=== PATIENT | male | born 1965 | race Caucasian/White ===

== ENCOUNTER 2017-12-28 14:38 | Emergency (ER) | payer MEDICAID ==
[~2017-12-28] VITALS: Ht 172.7 cm; Wt 72.6 kg
[~2017-12-28 14:38] MED LIST: AMLO10TA2 PO; BENA20TA2 PO; METO50TA16 PO
--- NOTE | 2017-12-28 14:43 | NUR ---
PT IS IN ROOM #2B. DR STEPHENS EVALUATED THE PT.
[2017-12-28] MEDS: TETRACAINE HCL 0.5% OPHT DROP 2 ML BOTTLE OP ONE (14:47)
[2017-12-28] MEDS ORDERED: TETRACAINE HCL 0.5% OPHT DROP 2 ML BOTTLE ONE (14:48)
[2017-12-28] MEDS ORDERED: GENTAMICIN SULFATE OPHT DROP 5 ML BOTTLE ONE (14:58)
[2017-12-28] MEDS: GENTAMICIN SULFATE OPHT DROP 5 ML BOTTLE OP ONE (14:59)
--- NOTE | 2017-12-28 15:01 | NUR ---
PT WAS D/C TO HOME. D/C INSTRUCTIONS GIVEN TO THE PT.
[2017-12-28 15:03] VITALS: BP 142/81
== END 2017-12-28 15:04 | disposition home or self-care (01) ==
LOC: ER 14:38
DX: H10.9 Unspecified conjunctivitis (principal); I10 Essential (primary) hypertension; Z59.0 Homelessness
CPT/HCPCS: A4663

== ENCOUNTER 2017-12-30 17:51 | Emergency (ER) | payer MEDICAID ==
[~2017-12-30] VITALS: Ht 172.7 cm; Wt 72.6 kg
--- NOTE | 2017-12-30 19:05 | NUR ---
sbar report to janusz dalton
[2017-12-30] MEDS ORDERED: HYDROCODONE/APAP 5-325MG TABLET ONE (19:44)
[2017-12-30] MEDS ORDERED: HYDROCODONE/APAP 5-325MG TABLET PO ONE (19:45)
--- NOTE | 2017-12-30 19:45 | NUR ---
Patient discharged to home in stable conditon. Written and verbal after care instructions given. Patient verbalizes understanding of instructions. Ambulated from ER with stable gait. All belongings with patient. VSS
[2017-12-30 19:46] VITALS: BP 128/81
== END 2017-12-30 19:47 | disposition home or self-care (01) ==
LOC: ER 17:53
DX: H20.9 Unspecified iridocyclitis (principal); I10 Essential (primary) hypertension; Z90.49 Acquired absence of other specified parts of digestive tract; Z59.0 Homelessness; Z79.899 Other long term (current) drug therapy
CPT/HCPCS: 99282; A4663

== ENCOUNTER 2018-09-04 21:36 | Emergency (ER) | payer MEDICAID ==
[~2018-09-04] VITALS: Ht 170.2 cm; Wt 86.2 kg
[~2018-09-04 21:36] MED LIST changes: -AMLO10TA2 PO; +AMLO10TA7 PO; -BENA20TA2 PO; +BENA20TA9 PO
--- NOTE | 2018-09-04 21:48 | NUR ---
Pt bib private ambulance from [facility] with c/o intermittent swelling and pain to bilateral upper extremities x 1 month. Pt also c/o pain to left index finger x 2 days. No swelling noted. AAOX4.
[2018-09-04] MEDS ORDERED: DOCU100C36 PO (21:53)
[2018-09-04] MEDS ORDERED: LISI10TA5 PO (21:53)
[2018-09-04] MEDS ORDERED: GABA-534 PO (21:53)
[2018-09-04] MEDS ORDERED: HYDR-4077 PO (21:53)
[2018-09-04] MEDS ORDERED: MORP15TA7 PO (21:53)
[2018-09-04] MEDS ORDERED: LABE200T5 PO (21:53)
--- NOTE | 2018-09-04 21:54 | NUR ---
Denies chest pain/shortness of breath. Denies GI/ distress. Denies N/V/D. Denies any other complaints or s/s. Requesting pain medication.
--- NOTE | 2018-09-04 22:38 | NUR ---
Kimmy hsu for transport back to [facility]. ETA 0030. Trip# [id number]
[2018-09-04] MEDS ORDERED: OXYCODONE/APAP 5-325 MG TABLET ONE (22:44)
[2018-09-04] MEDS ORDERED: DIAZEPAM 5 MG TABLET ONE (22:44)
[2018-09-04] MEDS ORDERED: DIAZEPAM 2 MG TABLET PO ONE (22:45)
[2018-09-04] MEDS ORDERED: OXYCODONE/APAP 5-325 MG TABLET PO ONE (22:45)
--- NOTE | 2018-09-05 00:24 | NUR ---
Patient discharged to home in stable conditon. Written and verbal after care instructions given. Patient verbalizes understanding of instructions. [facility] unit [facility] here to transport pt back to [facility]. VSS. No acute distress noted. Pt states pain management effective.
[2018-09-05 00:25] VITALS: BP 141/83
== END 2018-09-05 00:27 | disposition home or self-care (01) ==
LOC: ER 21:36
DX: M54.12 Radiculopathy, cervical region (principal); I10 Essential (primary) hypertension; Z90.49 Acquired absence of other specified parts of digestive tract; Z59.0 Homelessness; Z79.899 Other long term (current) drug therapy; Z79.891 Long term (current) use of opiate analgesic
CPT/HCPCS: 93005; A4663

== ENCOUNTER 2018-09-05 19:21 | Emergency (ER) | payer MEDICAID ==
[~2018-09-05] VITALS: Ht 170.2 cm; Wt 83.9 kg
[~2018-09-05 19:21] MED LIST changes: -BENA20TA9 PO; +DOCU100C36 PO; +GABA-534 PO; +HYDR-4077 PO; +LABE200T5 PO; +LISI10TA5 PO; +MORP15TA7 PO
--- NOTE | 2018-09-05 20:28 | NUR ---
CALLED [facility] TO TAKE PATIENT BACK TO [facility] ETA 1599. TRIP #[id number]
[2018-09-05] MEDS ORDERED: OXYCODONE/APAP 5-325 MG TABLET PO ONE (20:30)
[2018-09-05] MEDS ORDERED: DIAZEPAM 2 MG TABLET PO ONE (20:30)
[2018-09-05] MEDS ORDERED: OXYCODONE/APAP 5-325 MG TABLET ONE ×2 (20:36→23:30)
[2018-09-05] MEDS ORDERED: DIAZEPAM 5 MG TABLET ONE (20:36)
--- NOTE | 2018-09-05 23:18 | NUR ---
GAVE SBAR REPORT TO [facility] TEAM WHO WILL TAKE PATIENT BACK TO [facility]
[2018-09-05] MEDS ORDERED: HYDROCODONE/APAP 5-325MG TABLET PO ONE (23:30)
--- NOTE | 2018-09-05 23:30 | NUR ---
GAVE SBAR REPORT STAFF MEMBER FROM [facility]
--- NOTE | 2018-09-05 23:35 | NUR ---
Patient discharged to home in stable conditon VIA [facility]. Written and verbal after care instructions given. Patient verbalizes understanding of instructions.
[2018-09-05 23:36] VITALS: BP 148/88
== END 2018-09-05 23:37 | disposition home or self-care (01) ==
LOC: ER 19:21
DX: M54.12 Radiculopathy, cervical region (principal); I10 Essential (primary) hypertension; G89.29 Other chronic pain; M54.2 Cervicalgia; Z90.49 Acquired absence of other specified parts of digestive tract; Z59.0 Homelessness; Z79.891 Long term (current) use of opiate analgesic; Z79.899 Other long term (current) drug therapy
CPT/HCPCS: A4663

== ENCOUNTER 2018-09-06 23:44 | Emergency (ER) | payer MEDICAID ==
[~2018-09-06] VITALS: Ht 172.7 cm; Wt 83.9 kg
--- NOTE | 2018-09-06 23:51 | NUR ---
Dr. Nguyen at bedside for MSE.
[2018-09-06] MEDS ORDERED: CLONIDINE HCL 0.1 MG TABLET ONE (23:55)
[2018-09-06] MEDS ORDERED: OXYCODONE/APAP 5-325 MG TABLET ONE (23:56)
[2018-09-06] MEDS ORDERED: DIAZEPAM 2 MG TABLET ONE (23:56)
[2018-09-07] MEDS ORDERED: CLONIDINE HCL 0.1 MG TABLET PO ONE
[2018-09-07] MEDS ORDERED: DIAZEPAM 2 MG TABLET PO ONE
[2018-09-07] MEDS ORDERED: OXYCODONE/APAP 5-325 MG TABLET PO ONE ×2
--- NOTE | 2018-09-07 00:15 | NUR ---
Notified greenhouse manager for a taxi voucher. Patient provided with a taxi voucher to [facility] [address] [place] [address].
--- NOTE | 2018-09-07 01:00 | NUR ---
Patient refusing to leave, security called for assistance. Security advised to call [employer]. Called [employer].
--- NOTE | 2018-09-07 01:11 | NUR ---
[employer] arrived to ER, at bedside interviewing patient.
--- NOTE | 2018-09-07 01:21 | NUR ---
Patient requesting ambulance transfer back to SNF. [facility] ETA is 1hr with trip #[id number]
--- NOTE | 2018-09-07 03:20 | NUR ---
Patient discharged to home in stable conditon. Written and verbal after care instructions given. Patient verbalizes understanding of instructions. Pt out of ER via [facility] to be transported to [facility], [facility], no acute signs of distress, all belongings taken.
[2018-09-07 03:29] VITALS: BP 141/88
== END 2018-09-07 03:29 | disposition home or self-care (01) ==
LOC: ER 23:45
DX: M54.12 Radiculopathy, cervical region (principal); I10 Essential (primary) hypertension; G89.29 Other chronic pain; M54.2 Cervicalgia; Z79.891 Long term (current) use of opiate analgesic; Z79.899 Other long term (current) drug therapy
CPT/HCPCS: A4663

== ENCOUNTER 2020-05-14 18:43 | Emergency (ER) | payer MEDICAID, OTHER ==
[~2020-05-14] VITALS: Ht 172.7 cm; Wt 83.9 kg
[~2020-05-14 18:43] MED LIST changes: +AMLO10TA59 PO; -AMLO10TA7 PO
--- NOTE | 2020-05-14 19:05 | NUR ---
Dr Azevedo at bedside for MSE and wound treatment.
[2020-05-14] MEDS ORDERED: BENA20TA9 PO (19:06)
[2020-05-14] MEDS ORDERED: NEOMY/BACITRA/POLYMYXIN B OINT UD PACKET TP ONE ×2 (19:26→19:30)
[2020-05-14] MEDS ORDERED: LIDOCAINE HCL 2% 20 ML VIAL TP ONE (19:30)
--- NOTE | 2020-05-14 19:36 | NUR ---
Dressing applied as ordered by MD. Pt tolerated wound care. Patient discharged to home in stable condition. Written and verbal after care instructions given. Patient verbalizes understanding of instructions. Stressed follow up in 2 days for wound check, or return to ER for worsening s/s. Ambulated out of ED in steady gait, and stable condition.
[2020-05-14 20:01] VITALS: BP 120/80
== END 2020-05-14 19:45 | disposition home or self-care (01) ==
LOC: ER 18:43
DX: L02.413 Cutaneous abscess of right upper limb (principal); B18.2 Chronic viral hepatitis C; Z59.0 Homelessness; M48.02 Spinal stenosis, cervical region; I10 Essential (primary) hypertension; Z79.899 Other long term (current) drug therapy
CPT/HCPCS: 10060; 99282; J3490; A4663

== ENCOUNTER 2020-05-17 16:52 | Emergency (ER) | payer OTHER ==
[~2020-05-17] VITALS: Ht 172.7 cm; Wt 74.8 kg
[~2020-05-17 16:52] MED LIST changes: -AMLO10TA59 PO; +AMLO10TA7 PO; +BENA20TA9 PO; -HYDR-4077 PO; -LABE200T5 PO; -LISI10TA5 PO; -MORP15TA7 PO
--- NOTE | 2020-05-17 17:20 | NUR ---
Dr. Sifuentes at bedside for MSE
[2020-05-17] MEDS ORDERED: CLINDAMYCIN HCL 150 MG CAPSULE PO ONE (17:30)
[2020-05-17] MEDS ORDERED: SULFAMETH/TRIMETH 800/160 MG TABLET PO ONE (17:30)
[2020-05-17] MEDS ORDERED: LIDOCAINE 2%-EPI 1:100,000 20 ML VIAL TP ONE (17:30)
[2020-05-17] MEDS ORDERED: LIDOCAINE 2%-EPI 1:100,000 20 ML VIAL ONE (17:38)
[2020-05-17] MEDS ORDERED: SULFAMETH/TRIMETH 800/160 MG TABLET ONE (18:40)
[2020-05-17] MEDS ORDERED: CLINDAMYCIN HCL 150 MG CAPSULE ONE (18:40)
--- NOTE | 2020-05-17 18:45 | NUR ---
Patient discharged to home in stable condition. Written and verbal after care instructions given. Patient verbalizes understanding of instructions. Stressed follow up or return to ER for worsening s/s. Patient ambulated with steady gait. NAD noted
[2020-05-17 19:03] VITALS: BP 124/83
== END 2020-05-17 18:45 ==
LOC: ER 16:52
DX: L03.114 Cellulitis of left upper limb (principal); L02.414 Cutaneous abscess of left upper limb; Z90.49 Acquired absence of other specified parts of digestive tract; I10 Essential (primary) hypertension; Z86.19 Personal history of other infectious and parasitic diseases; M48.02 Spinal stenosis, cervical region
CPT/HCPCS: A4663

== ENCOUNTER 2021-03-05 17:46 | Emergency (ER) | payer OTHER ==
[~2021-03-05] VITALS: Ht 172.7 cm; Wt 77.1 kg
[~2021-03-05 17:46] MED LIST changes: +AMLO10TA59 PO; -AMLO10TA7 PO
[2021-03-05] MEDS ORDERED: KETOROLAC TROMETHAMINE 15 MG INJ IM ONE (20:15)
[2021-03-05] MEDS ORDERED: predniSONE 20 MG TABLET PO ONE (20:15)
[2021-03-05] MEDS ORDERED: predniSONE 20 MG TABLET ONE (20:22)
[2021-03-05] MEDS ORDERED: KETOROLAC TROMETHAMINE 15 MG INJ ONE (20:22)
[2021-03-05] MEDS ORDERED: PRED20TA PO (20:49)
[2021-03-05] MEDS ORDERED: HYDROCODONE/APAP 5-325MG TABLET ONE (21:45)
[2021-03-05] MEDS ORDERED: HYDROCODONE/APAP 5-325MG TABLET PO ONE (21:45)
[2021-03-05 22:35] VITALS: BP 121/88
--- NOTE | 2021-03-05 22:35 | NUR ---
Patient given written and verbal discharge instructions. Patient verbalizes understanding of instructions. Patient is ambulatory with steady gait. Refuses offer of senior care placement. Patient given list of available shelters in surrounding area.
== END 2021-03-05 22:36 | disposition home or self-care (01) ==
LOC: ER 17:47
DX: M48.061 Spinal stenosis, lumbar region without neurogenic claudication (principal); M54.16 Radiculopathy, lumbar region; M51.27 Other intervertebral disc displacement, lumbosacral region; I10 Essential (primary) hypertension; B18.2 Chronic viral hepatitis C; Z90.49 Acquired absence of other specified parts of digestive tract; R26.2 Difficulty in walking, not elsewhere classified; Z79.899 Other long term (current) drug therapy; Z87.81 Personal history of (healed) traumatic fracture
CPT/HCPCS: 72131; 73000; 96372; 99284; J1885; J7512; A4663

== ENCOUNTER 2021-03-18 19:56 | Inpatient (IN) | payer OTHER ==
[~2021-03-18] VITALS: Ht 170.2 cm; Wt 90.7 kg
[~2021-03-18 19:56] MED LIST changes: +PRED20TA PO
[2021-03-18] MEDS ORDERED: OLANZAPINE ZYDIS 5 MG TAB.RAPDIS PO STA (20:57)
[2021-03-18 21:15] LABS: HEMATOCRIT 42.4 % (36.7-47.1); MEAN CORPUSCULAR HEMOGLOBIN 32.6 uug (23.8-33.4); MEAN CORPUSCULAR VOLUME 93.3 fL (73.0-96.2); PLATELET COUNT (AUTO) 297 K/uL (152-348)
[2021-03-18 21:24] LABS: CREATININE 2.9 mg/dL (0.6-1.3); POTASSIUM 3.1 mmol/L (3.5-5.1)
[2021-03-18] MEDS ORDERED: OLANZAPINE 5 MG TABLET ONE (21:28)
[2021-03-18 21:32] LABS: ETHANOL 30 MG/DL (0-0)
[2021-03-18 21:36] LABS: BILIRUBIN,DIRECT 0.2 mg/dL (0.0-0.2); BILIRUBIN,TOTAL 0.4 mg/dL (0.2-1.0); TOTAL PROTEIN, SERUM 8.2 g/dL (6.4-8.2)
[2021-03-18 21:37] LABS: MAGNESIUM 2.6 mg/dL (1.8-2.4); PHOSPHOROUS 3.5 mg/dL (2.5-4.9)
[2021-03-18] MEDS ORDERED: IV NORMAL SALINE 1000 ML BAG IV ONE (22:15)
[2021-03-18] MEDS ORDERED: CLOPIDOGREL 75 MG TABLET PO ONE (22:15)
[2021-03-18] MEDS ORDERED: ASPIRIN 325 MG TABLET PO ONE (22:15)
[2021-03-18] MEDS ORDERED: TRAMADOL HCL 50 MG TABLET PO ONE (22:30)
[2021-03-18] MEDS ORDERED: ENOXAPARIN SODIUM 40 MG/0.4 ML DISP.SYRIN SQ ONE (22:30)
[2021-03-18] MEDS ORDERED: TRAMADOL HCL 50 MG TABLET ONE (22:39)
[2021-03-18] MEDS ORDERED: ENOXAPARIN SODIUM 60 MG/0.6 ML DISP.SYRIN SQ ONE (22:39)
[2021-03-18] MEDS ORDERED: ASPIRIN 325 MG TABLET ONE (22:39)
[2021-03-18] MEDS ORDERED: CLOPIDOGREL 75 MG TABLET ONE (22:40)
[2021-03-18 22:43] LABS: *BILIRUBIN,URIN NEGATIVE (NEGATIVE); *BLOOD, URINE 1+ (NEGATIVE); *CLARITY,URINE CLEAR (CLEAR); *COLOR,URINE YELLOW (YELLOW); *KETONES,URINE NEGATIVE (NEGATIVE); *UROBILINOGEN,URINE 0.2 E.U./dl (NORMAL); LEUKOCYTE ESTERASE ,URINE NEGATIVE (NEGATIVE); NITRITE, URINE NEGATIVE (NEGATIVE); UGLUCOSE TRACE (NEGATIVE)
[2021-03-18 22:58] LABS: BACTERIA,URINE FEW /HPF (NONE SEEN); RBC,URINE 0-3 /HPF (0-3); SQUAMOUS EPITHELIAL CELL,UR FEW /HPF (NONE SEEN); WBC,URINE 0-3 /HPF (0-3)
[2021-03-18] MEDS ORDERED: POTASSIUM CHLORIDE 20 MEQ TAB.PRT.SR PO ONE (23:00)
--- NOTE | 2021-03-18 23:00 | NUR ---
PAGED EPIC ON SHEAR GRINDER OPERATOR HELPER, WAITING FOR DR BURNS TO CALL BACK.
[2021-03-18 23:02] LABS: *AMPHETAMINE, URINE NEGATIVE (NEGATIVE); *CANNABINOID, URINE NEGATIVE (NEGATIVE); *COCCAINE, URINE NEGATIVE (NEGATIVE); *OPIATE, URINE NEGATIVE (NEGATIVE); *PHENCYCLIDINE SCREEN,URINE NEGATIVE (NEGATIVE)
[2021-03-18] MEDS ORDERED: POTASSIUM CHLORIDE 20 MEQ TAB.PRT.SR ONE (23:48)
--- NOTE | 2021-03-19 00:15 | NUR ---
Dr Hdez spoke to [facility] calibration tester Christo Rob NP who accepted patient to Tele floor.
[2021-03-19] MEDS ORDERED: Z GUARD REMEDY PASTE 57 GM TUBE TOP PRN (00:30)
[2021-03-19] MEDS ORDERED: ONDANSETRON 4 MG/2 ML VIAL IV PRN (00:30)
--- NOTE | 2021-03-19 01:17 | NUR ---
Transfered to 3rd floor Tele via gurny with no distress noted.
--- NOTE | 2021-03-19 01:20 | NUR ---
ADMITTED PATIENT IN TELE FLOOR UNDER THE CARE OF ADRIANNE ROMERO, PATIENT ALERT ORIENTED, FACE RED, SMELL ALCOHOL, DENIES DRINKING. PATIENT TELE SINUS RHYTHM 88, PATIENT DISHEVELED APPEARS HOMELESS, NO COMPLAIN OF PAIN AT THIS TIME, WILL CONT TO MONITOR.
[2021-03-19 01:30] VITALS: BP 168/108
[2021-03-19 04:00] VITALS: BP 130/100
--- NOTE | 2021-03-19 04:01 | NUR ---
PATIENT HAD COVID 19 VACCINE PFIZER.
--- NOTE | 2021-03-19 04:38 | NUR ---
NOTIFY ADRIANNE ROMERO PATIENT BP 189/100, 130/100, WITH ORDER.
[2021-03-19] MEDS ORDERED: hydrALAZINE HCL 20 MG/1 ML VIAL IV PRN (04:45)
[2021-03-19] MEDS: PANTOPRAZOLE SODIUM 40 MG TABLET.DR PO SCH (06:08)
--- NOTE | 2021-03-19 06:27 | NUR ---
PATIENT ALERT ORIENTED, NO SOB NO CHEST PAIN, NO HEADACHES, NO DIZZINESS AT THIS TIME, NO NAUSEA NO VOMITING NOTED. PATIENT TELE MONITOR SINUS RHYTHM AT THIS TIME, WILL MONITOR BP.
[2021-03-19 08:38] VITALS: BP 158/99
[2021-03-19] MEDS ORDERED: IV NS 1000 ML 1,000 ML IV PRN ×2 (08:45→16:00)
[2021-03-19] MEDS ORDERED: CLOPIDOGREL 75 MG TABLET PO SCH (09:00)
--- NOTE | 2021-03-19 09:00 | NUR ---
awake alert and oriented, denies of pain, no shortness of breath, tele SR, seen earlier by Dr Huerta with orders- carried out, explained plan of care, just looks and said 'Yes", not very conversant, needs attended, call light within reach
[2021-03-19] MEDS: METOPROLOL TARTRATE 50 MG TABLET PO SCH ×2 (09:04→20:59)
[2021-03-19 09:12] LABS: HEMATOCRIT 38.4 % (36.7-47.1); MEAN CORPUSCULAR HEMOGLOBIN 33.1 uug (23.8-33.4); MEAN CORPUSCULAR VOLUME 94.9 fL (73.0-96.2); PLATELET COUNT (AUTO) 272 K/uL (152-348)
[2021-03-19 09:20] LABS: BILIRUBIN,TOTAL 0.8 mg/dL (0.2-1.0); CREATININE 2.5 mg/dL (0.6-1.3); POTASSIUM 3.5 mmol/L (3.5-5.1); TOTAL PROTEIN, SERUM 6.6 g/dL (6.4-8.2)
[2021-03-19] MEDS: ASPIRIN 81 MG TAB.CHEW PO SCH (09:23)
[2021-03-19 11:58] VITALS: BP 120/80
--- NOTE | 2021-03-19 12:30 | NUR ---
states" cant find my cards" threw his belongings on the floor, and mad, assisted and found cards in his bag, calmed down after and apologized
[2021-03-19] MEDS ORDERED: IV NORMAL SALINE 1000 ML BAG IV PRN (15:30)
--- NOTE | 2021-03-19 15:30 | NUR ---
seen by Holly Serrano MATERIALS AND CORROSION ENGINEER- wissruthi daniels- carried out
[2021-03-19 15:33] VITALS: BP 139/86
[2021-03-19] MEDS: ACETAMINOPHEN 325 MG TABLET PO PRN (16:39)
[2021-03-19] MEDS ORDERED: ASPI81TA31 PO (16:46)
[2021-03-19] MEDS ORDERED: ATOR40TA PO (16:46)
[2021-03-19] MEDS ORDERED: TAMS-3 PO (16:46)
[2021-03-19] MEDS ORDERED: IBUP-1953 PO (16:46)
[2021-03-19] MEDS ORDERED: HYDR-894 PO (16:46)
[2021-03-19] MEDS ORDERED: FAMO20TA8 PO (16:46)
[2021-03-19] MEDS ORDERED: HYDR-3972 PO (16:46)
[2021-03-19] MEDS ORDERED: IBUP-1955 PO (16:49)
[2021-03-19] MEDS ORDERED: METO100T7 PO (16:54)
[2021-03-19] MEDS ORDERED: DOCUSATE SODIUM 100 MG CAPSULE PO SCH (17:00)
[2021-03-19] MEDS: LACTULOSE 20 G/30 ML LIQUID UDC PO SCH (17:27)
--- NOTE | 2021-03-19 18:25 | NUR ---
no distress noted, cooperative at this time, still periods of talking to himself but directable, safety measures maintained, remains on SR, call light within reach
--- NOTE | 2021-03-19 20:12 | NUR ---
Received patient in bed alert x4 .Calm and pleasant upon approach.On RA saturating at 98 %.NSR on Tele.IV on right AC 20g with NS running at 80cc/hr. seen and examined patient with new order received noted and carried out. Dc'D IvF changed to LR at 100 ml/Hr.Patient uses urinal voided well. Safety measures in place.Will continue to monitor.
[2021-03-19] MEDS ORDERED: LORAZEPAM 2 MG/1 ML VIAL IV PRN (20:30)
[2021-03-19] MEDS: TRAZODONE 100 MG TABLET PO SCH (20:59)
[2021-03-19] MEDS ORDERED: ATORVASTATIN 40 MG TABLET PO SCH (21:00)
[2021-03-19] MEDS ORDERED: GABAPENTIN 300 MG CAPSULE PO SCH (21:00)
[2021-03-19] MEDS ORDERED: ENOXAPARIN SODIUM 30 MG/0.3 ML DISP.SYRIN SQ SCH (21:00)
[2021-03-19] MEDS: ENOXAPARIN SODIUM 40 MG/0.4 ML DISP.SYRIN SQ SCH (21:03)
[2021-03-19] MEDS: HYDROCODONE/APAP 5-325MG TABLET PO PRN (21:06)
[2021-03-19] MEDS: IV LACTATED RINGERS SOLUTION 1,000 ML IV PRN (21:06)
--- NOTE | 2021-03-19 21:32 | NUR ---
Patient c/o back pain. [place] given with good effect.Patient insisting to take shower.Started to get agitated and demand to take him to shower room. Reinforced safety measures.Charge nurse made aware.Assisted patient to shower room by glycerin supervisor .Able to ambulates with use of walker.Patient stated he feels much better after shower. Compliant with medication and no episodes of agitation.
[2021-03-20 04:30] VITALS: BP 126/90
[2021-03-20] MEDS: PANTOPRAZOLE SODIUM 40 MG TABLET.DR PO SCH (06:08)
[2021-03-20] MEDS: IV LACTATED RINGERS SOLUTION 1,000 ML IV PRN (06:35)
[2021-03-20 07:01] LABS: HEMATOCRIT 39.2 % (36.7-47.1); MEAN CORPUSCULAR HEMOGLOBIN 33.1 uug (23.8-33.4); MEAN CORPUSCULAR VOLUME 95.6 fL (73.0-96.2); PLATELET COUNT (AUTO) 268 K/uL (152-348)
--- NOTE | 2021-03-20 07:06 | NUR ---
Patient slept intermittently. No episodes of agitation.Noticed talking to himself.Denies pain.No s/s of distress noted.NSr on Tele.Will endorse to oncoming shift.
[2021-03-20 07:17] LABS: *URINE TOTAL PROTEIN RANDOM 70.1 mg/dL (<150/24HR)
[2021-03-20 07:20] LABS: BILIRUBIN,TOTAL 0.4 mg/dL (0.2-1.0); CREATININE 2.8 mg/dL (0.6-1.3); POTASSIUM 3.6 mmol/L (3.5-5.1); TOTAL PROTEIN, SERUM 6.5 g/dL (6.4-8.2)
[2021-03-20 07:25] LABS: THYROID STIMULATING HORMONE 1.205 mIU/mL (0.358-3.740)
[2021-03-20] MEDS ORDERED: METOPROLOL SUCCINATE XL 50 MG TAB.SR.24H PO SCH (09:00)
[2021-03-20] MEDS ORDERED: FAMOTIDINE 20 MG TABLET PO SCH (09:00)
[2021-03-20] MEDS ORDERED: ASPIRIN 81 MG TAB.CHEW PO SCH (09:00)
[2021-03-20] MEDS ORDERED: BENAZEPRIL HCL 20 MG TABLET PO SCH (09:00)
[2021-03-20] MEDS: METOPROLOL TARTRATE 50 MG TABLET PO SCH ×2 (09:17→20:07)
[2021-03-20] MEDS: hydrALAZINE HCL 25 MG TABLET PO SCH ×3 (09:17→17:13)
[2021-03-20] MEDS: ASPIRIN 81 MG TAB.CHEW PO SCH (09:17)
[2021-03-20] MEDS: AMLODIPINE 10 MG TABLET PO SCH (09:17)
[2021-03-20] MEDS: TAMSULOSIN HCL 0.4 MG CAP.SR.24H PO SCH (09:17)
[2021-03-20] MEDS: LACTULOSE 20 G/30 ML LIQUID UDC PO SCH (09:18)
[2021-03-20] MEDS ORDERED: KETOROLAC TROMETHAMINE 15 MG INJ IVP PRN (10:45)
[2021-03-20 11:48] VITALS: BP 130/85
--- NOTE | 2021-03-20 12:27 | NUR ---
Blow Off Worker Consultation: Blow Off Worker consultation requested for homelessness. Per ED physicians notes, patient presented to the ED with sudden onset, intermittent, unchanged, moderate chest pain which started while waiting here in the emergency department waiting room. Per ED physicians note, patient originally came in for acute on chronic low back pain and right lower quadrant pain, but then reported chest pain. This SPORTS ADMINISTRATOR met with the patient bedside in his hospital room. Patient is a 56 year old male, awake, alert, receptive to speaking with this SPORTS ADMINISTRATOR. Patient reported coming to the hospital for body pain and kidney pain. Patient reports hx of HTN. Patient reports being homeless for the past 4-5 years, mostly living on the streets, and sometimes at a friends house. This SPORTS ADMINISTRATOR asked for contact information on family or friends, and patient stated he did not have an emergency contact. Patient denies use of drugs or alcohol, denies any significant medical history except hypertension. Patient denies hx of mental health diagnosis. Patient has ID Care Medi-nannette and SSI for income. This SPORTS ADMINISTRATOR discussed discharge plans and explored patients psychosocial needs by offering homeless community resources. Patient stated he was not sure of his discharge plans, but was receptive of these resources, but asked this SPORTS ADMINISTRATOR to provide them to him at a later time. Patient began closing his eyes towards the end of this interview, rolled over to his side. This SPORTS ADMINISTRATOR ended this interview and stated that the resources would be provided at a later time, per patient request. This SPORTS ADMINISTRATOR then met with patients nurse Ann, and reported above to Ann. This SPORTS ADMINISTRATOR stated that homeless resources would be left in patients chart, to be provided to patient at time of discharge. This SPORTS ADMINISTRATOR left the homeless community resource packet in patients chart. Resources provided include the following: a list of year round shelters [facility] [address], ; [facility] [address] [facility], ; and [facility] [address] [facility], ; [facility], ; [facility], [address], [address], ; [facility], [address] [facility], [address], . [facility], [facility], [address] [facility], [address], [facility], [address] [place] [address], [facility], [facility], [address] [place] [address], [facility] Facility, [facility], [address], (men only) [facility] homeless directory which provides a list of places that individuals can go to throughout the week for hot meals, sack lunches, food pantries, and showers; a list of mental health clinics: [facility] [address] [place] [address], ; [facility] [address] [place] [address], ; [facility] [address] [place] [address], ; a list of medical clinics: [facility] [address] [facility] [address], [place]. [place], ; [facility] [address] [facility] [place] [address]; [facility] [address] [facility] [place] [address], ; and a list of substance abuse programs: [facility] Substance Abuse Self-helpline ; [facility] ; [facility] ; [facility] ; [facility] [place] ; [facility] [phone]; [facility] [phone]. SW also provided patient with information on locations of pharmacies.
[2021-03-20] MEDS ORDERED: LORAZEPAM 1 MG TABLET PO PRN (12:45)
[2021-03-20 15:45] VITALS: BP 124/74
--- NOTE | 2021-03-20 19:10 | NUR ---
Received patient alert/oriented , requested pain medication. IV site intact. Kept call light within reach. Will continue to monitor.
[2021-03-20] MEDS: TRAZODONE 100 MG TABLET PO SCH (20:06)
[2021-03-20] MEDS: ENOXAPARIN SODIUM 40 MG/0.4 ML DISP.SYRIN SQ SCH (20:08)
[2021-03-20] MEDS: HYDROMORPHONE 1 MG/1 ML DISP.SYRIN IV PRN (20:09)
[2021-03-20 20:15] VITALS: BP 161/95
[2021-03-21 00:05] VITALS: BP 153/89
[2021-03-21] MEDS: IV LACTATED RINGERS SOLUTION 1,000 ML IV PRN ×2 (00:55→17:53)
[2021-03-21] MEDS: HYDROMORPHONE 1 MG/1 ML DISP.SYRIN IV PRN ×3 (03:25→21:48)
[2021-03-21 04:15] VITALS: BP 143/87
--- NOTE | 2021-03-21 05:14 | NUR ---
Patient requested 2x PRN pain medication during the shift. Meds given as ordered. Will continue to monitor.
[2021-03-21] MEDS: PANTOPRAZOLE SODIUM 40 MG TABLET.DR PO SCH (05:22)
[2021-03-21 05:53] LABS: MEAN CORPUSCULAR HEMOGLOBIN 32.8 uug (23.8-33.4); MEAN CORPUSCULAR VOLUME 93.1 fL (73.0-96.2); PLATELET COUNT (AUTO) 285 K/uL (152-348)
[2021-03-21 06:05] LABS: CREATININE 2.3 mg/dL (0.6-1.3); POTASSIUM 3.4 mmol/L (3.5-5.1)
[2021-03-21 06:07] LABS: BILIRUBIN,DIRECT 0.1 mg/dL (0.0-0.2); BILIRUBIN,TOTAL 0.4 mg/dL (0.2-1.0); TOTAL PROTEIN, SERUM 6.9 g/dL (6.4-8.2)
--- NOTE | 2021-03-21 07:02 | NUR ---
Patient denies discomfort at the end of the shift. All needs attended and kept comfortable. Endorsed to the next shift for continuity of care.
[2021-03-21] MEDS ORDERED: POTASSIUM CHLORIDE 20 MEQ POWDER PACKET GT ONE (07:30)
[2021-03-21] MEDS: THIAMINE HCL 100 MG TABLET PO SCH (08:25)
[2021-03-21] MEDS: ASPIRIN 81 MG TAB.CHEW PO SCH (08:25)
[2021-03-21] MEDS: METOPROLOL TARTRATE 50 MG TABLET PO SCH ×2 (08:26→20:37)
[2021-03-21] MEDS: MULTIVITAMINS,THERAPEUTIC TABLET PO SCH (08:26)
[2021-03-21] MEDS: hydrALAZINE HCL 25 MG TABLET PO SCH ×3 (08:26→17:59)
[2021-03-21] MEDS: AMLODIPINE 10 MG TABLET PO SCH (08:27)
[2021-03-21] MEDS: LACTULOSE 20 G/30 ML LIQUID UDC PO SCH (08:27)
[2021-03-21] MEDS: TAMSULOSIN HCL 0.4 MG CAP.SR.24H PO SCH (08:27)
[2021-03-21 09:00] VITALS: BP 130/91
[2021-03-21] MEDS: ACETAMINOPHEN 325 MG TABLET PO PRN (11:46)
[2021-03-21 12:00] VITALS: BP 124/82
[2021-03-21] MEDS: HYDROCODONE/APAP 5-325MG TABLET PO PRN (14:32)
[2021-03-21 16:00] VITALS: BP 131/85
--- NOTE | 2021-03-21 18:36 | NUR ---
Patient continue IV LR at 100cc/hr. tolerated well. Continue instruction of straining urine. non compliant noted. Patient screams and verbalize that somebody with invisible clothes trying to get his card, verbalize also to call the police. Patient reorient that nobody trying to get his things with fair effect. Patient for psych consult. will continue monitor
[2021-03-21 20:09] VITALS: BP 140/85
[2021-03-21] MEDS: TRAZODONE 100 MG TABLET PO SCH (20:37)
[2021-03-21] MEDS: ENOXAPARIN SODIUM 40 MG/0.4 ML DISP.SYRIN SQ SCH (20:42)
--- NOTE | 2021-03-21 20:42 | NUR ---
PATIENT ALERT ORIENTED, NO SOB NO CHEST PAIN, NO COMPLAIN OF PAIN, PATIENT HAS EPISODE OF TALKING TO SELF, CONT IV HYDRATION TOLERATE WELL. ASSISTED WITH SHOWER, CONT TO MONITOR.
[2021-03-22 04:20] VITALS: BP 153/93
[2021-03-22] MEDS: HYDROMORPHONE 1 MG/1 ML DISP.SYRIN IV PRN ×3 (05:00→18:47)
[2021-03-22] MEDS: IV LACTATED RINGERS SOLUTION 1,000 ML IV PRN ×2 (05:02→14:27)
[2021-03-22 06:06] LABS: HEPATITIS A AB, TOTAL Negative (Negative)
[2021-03-22] MEDS: PANTOPRAZOLE SODIUM 40 MG TABLET.DR PO SCH (06:15)
[2021-03-22 06:52] LABS: HEMATOCRIT 38.3 % (36.7-47.1); MEAN CORPUSCULAR HEMOGLOBIN 32.9 uug (23.8-33.4); MEAN CORPUSCULAR VOLUME 93.3 fL (73.0-96.2); PLATELET COUNT (AUTO) 281 K/uL (152-348)
[2021-03-22 07:06] LABS: CREATININE 2.3 mg/dL (0.6-1.3); POTASSIUM 3.4 mmol/L (3.5-5.1)
--- NOTE | 2021-03-22 07:08 | NUR ---
PATIENT ALERT ORIENTED, NO SOB NO CHEST PAIN, CONT ON PAIN MANAGEMENT DUE PAIN ON NECK AND LOWER BACK, CONT IV HYDRATION TOLERATE WELL, PATIENT ATE AND DRINK FLUIDS ADEQUATELY, CONT TO MONITOR.
--- NOTE | 2021-03-22 07:30 | NUR ---
Patient received alert and oriented, talking to himself. Patient on RA with no SOB or difficulties breathing. No acute distress noted at this time. Left hand IV is patent running IVF as ordered with no redness or swelling. No c/o pain or discomforts at this time. Urinal at bedside. Call light and personal belongings within easy reach. Will continue to monitor.
[2021-03-22] MEDS: LACTULOSE 20 G/30 ML LIQUID UDC PO SCH (08:10)
[2021-03-22] MEDS: hydrALAZINE HCL 25 MG TABLET PO SCH ×3 (08:10→16:40)
[2021-03-22] MEDS: ASPIRIN 81 MG TAB.CHEW PO SCH (08:10)
[2021-03-22] MEDS: TAMSULOSIN HCL 0.4 MG CAP.SR.24H PO SCH (08:11)
[2021-03-22] MEDS: AMLODIPINE 10 MG TABLET PO SCH (08:11)
[2021-03-22] MEDS: METOPROLOL TARTRATE 50 MG TABLET PO SCH ×2 (08:11→21:05)
[2021-03-22] MEDS: MULTIVITAMINS,THERAPEUTIC TABLET PO SCH (08:12)
[2021-03-22] MEDS: THIAMINE HCL 100 MG TABLET PO SCH (08:12)
[2021-03-22] MEDS ORDERED: POTASSIUM CHLORIDE 10 MEQ TAB.PRT.SR PO ONE (09:15)
[2021-03-22 11:27] VITALS: BP 129/71
[2021-03-22 15:50] VITALS: BP 117/76
[2021-03-22 20:13] VITALS: BP 140/90
[2021-03-22] MEDS: TRAZODONE 100 MG TABLET PO SCH (21:04)
[2021-03-22] MEDS: ENOXAPARIN SODIUM 40 MG/0.4 ML DISP.SYRIN SQ SCH (21:08)
[2021-03-23] MEDS: HYDROMORPHONE 1 MG/1 ML DISP.SYRIN IV PRN ×4 (00:49→18:36)
[2021-03-23] MEDS: IV LACTATED RINGERS SOLUTION 1,000 ML IV PRN (02:21)
[2021-03-23 04:30] VITALS: BP 141/97
[2021-03-23] MEDS: PANTOPRAZOLE SODIUM 40 MG TABLET.DR PO SCH (06:09)
--- NOTE | 2021-03-23 06:11 | NUR ---
PAtient awake ,calm and pleasant still noted with episodes of talking to himself. Denies SOB. Iv on left hand patent and intact. No s/s of infiltration with IVF running well .Tolerated well. Compliant with medication.Call light with in reach.
--- NOTE | 2021-03-23 07:20 | NUR ---
Received patient awake in bed. AOx4. On room air. No signs of acute distress. Patient denies pain/ discomfort at this time. Call light within reach. Will continue to monitor.
[2021-03-23 07:25] LABS: HEMATOCRIT 40.2 % (36.7-47.1); MEAN CORPUSCULAR HEMOGLOBIN 32.6 uug (23.8-33.4); MEAN CORPUSCULAR VOLUME 93.7 fL (73.0-96.2); PLATELET COUNT (AUTO) 275 K/uL (152-348)
[2021-03-23 07:46] LABS: CREATININE 2.2 mg/dL (0.6-1.3); POTASSIUM 3.5 mmol/L (3.5-5.1)
[2021-03-23] MEDS: ASPIRIN 81 MG TAB.CHEW PO SCH (08:15)
[2021-03-23] MEDS: TAMSULOSIN HCL 0.4 MG CAP.SR.24H PO SCH (08:15)
[2021-03-23] MEDS: THIAMINE HCL 100 MG TABLET PO SCH (08:15)
[2021-03-23] MEDS: MULTIVITAMINS,THERAPEUTIC TABLET PO SCH (08:15)
[2021-03-23] MEDS: LACTULOSE 20 G/30 ML LIQUID UDC PO SCH (08:16)
[2021-03-23] MEDS: AMLODIPINE 10 MG TABLET PO SCH (08:17)
[2021-03-23] MEDS: hydrALAZINE HCL 25 MG TABLET PO SCH ×3 (08:18→16:17)
[2021-03-23] MEDS: METOPROLOL TARTRATE 50 MG TABLET PO SCH ×2 (08:18→20:23)
[2021-03-23 11:23] VITALS: BP 117/79
[2021-03-23 15:57] VITALS: BP 105/76
--- NOTE | 2021-03-23 18:48 | NUR ---
Patient awake, resting in bed. AOx4. No signs of acute distress. Patient complains of pain. Dilaudid IV PRN given and patient expressed relief. Patient compliant with medications. Patient has episodes of talking to self. Call light within reach. Safety measures provided. Needs anticipated and met. Will endorse to incoming shift for continuity of care.
[2021-03-23] MEDS: TRAZODONE 100 MG TABLET PO SCH (20:22)
[2021-03-23] MEDS: ENOXAPARIN SODIUM 40 MG/0.4 ML DISP.SYRIN SQ SCH (20:23)
[2021-03-23 22:32] VITALS: BP 130/86
[2021-03-24] MEDS: HYDROMORPHONE 1 MG/1 ML DISP.SYRIN IV PRN ×4 (01:06→20:29)
[2021-03-24] MEDS: ACETAMINOPHEN 325 MG TABLET PO PRN (02:34)
--- NOTE | 2021-03-24 04:11 | NUR ---
Patient received alert and oriented, talking to himself, auditory hallucinations. Able to make needs known. VSS. Patient on RA with no SOB or difficulties breathing. No acute distress noted at this time. Pt pulled IV out, established new IV 22G LAC, patent and intact. Administered Dilaudid PRN per pt request, effective. Urinal at bedside. Call light and personal belongings within easy reach. Will continue to monitor.
[2021-03-24 04:30] VITALS: BP 137/91
[2021-03-24 06:19] LABS: HEMATOCRIT 38.8 % (36.7-47.1); MEAN CORPUSCULAR HEMOGLOBIN 32.9 uug (23.8-33.4); PLATELET COUNT (AUTO) 287 K/uL (152-348)
[2021-03-24] MEDS: PANTOPRAZOLE SODIUM 40 MG TABLET.DR PO SCH (06:28)
[2021-03-24 06:46] LABS: CREATININE 3.1 mg/dL (0.6-1.3); POTASSIUM 3.3 mmol/L (3.5-5.1)
[2021-03-24] MEDS: THIAMINE HCL 100 MG TABLET PO SCH (08:03)
[2021-03-24] MEDS: METOPROLOL TARTRATE 50 MG TABLET PO SCH ×2 (08:03→22:14)
[2021-03-24] MEDS: ASPIRIN 81 MG TAB.CHEW PO SCH (08:03)
[2021-03-24] MEDS: LACTULOSE 20 G/30 ML LIQUID UDC PO SCH (08:03)
[2021-03-24] MEDS: hydrALAZINE HCL 25 MG TABLET PO SCH ×3 (08:04→16:16)
[2021-03-24] MEDS: AMLODIPINE 10 MG TABLET PO SCH (08:04)
[2021-03-24] MEDS: TAMSULOSIN HCL 0.4 MG CAP.SR.24H PO SCH (08:04)
[2021-03-24] MEDS: MULTIVITAMINS,THERAPEUTIC TABLET PO SCH (08:05)
[2021-03-24] MEDS ORDERED: POTASSIUM CHLORIDE 10 MEQ TAB.PRT.SR PO ONE (09:15)
[2021-03-24 11:51] VITALS: BP 131/85
[2021-03-24] MEDS: IV 1/2 NS + KCL 20 MEQ BAG 1,000 ML IV PRN (14:58)
[2021-03-24 15:13] VITALS: BP 130/89
--- NOTE | 2021-03-24 15:29 | NUR ---
no distress noted, patient is ambulatory, self care, continue on hydration as ordered.
[2021-03-24 20:00] VITALS: BP 133/81
--- NOTE | 2021-03-24 20:00 | NUR ---
Pt lying in bed, alert and oriented, c/o pain 5/10, at back area. IV fluids infusing.
[2021-03-24] MEDS ORDERED: ENOXAPARIN SODIUM 40 MG/0.4 ML DISP.SYRIN SQ SCH (21:00)
[2021-03-24] MEDS: TRAZODONE 100 MG TABLET PO SCH (22:11)
[2021-03-24] MEDS: HEPARIN SODIUM,PORCINE 5,000 UNITS/ML VIAL SQ SCH (22:12)
[2021-03-25] MEDS: HYDROMORPHONE 1 MG/1 ML DISP.SYRIN IV PRN ×3 (01:08→12:18)
[2021-03-25] MEDS: IV 1/2 NS + KCL 20 MEQ BAG 1,000 ML IV PRN ×2 (03:23→03:25)
[2021-03-25 04:00] VITALS: BP 138/92
[2021-03-25] MEDS: PANTOPRAZOLE SODIUM 40 MG TABLET.DR PO SCH (06:14)
[2021-03-25 07:18] LABS: HEMATOCRIT 39.2 % (36.7-47.1); MEAN CORPUSCULAR HEMOGLOBIN 32.3 uug (23.8-33.4); MEAN CORPUSCULAR VOLUME 93.9 fL (73.0-96.2); PLATELET COUNT (AUTO) 269 K/uL (152-348)
[2021-03-25 07:25] LABS: CREATININE 2.4 mg/dL (0.6-1.3); POTASSIUM 3.7 mmol/L (3.5-5.1)
[2021-03-25 08:06] LABS: ANTI-DNA(DS) AB, QN 1 IU/mL (0-9)
[2021-03-25] MEDS: LACTULOSE 20 G/30 ML LIQUID UDC PO SCH (08:20)
[2021-03-25] MEDS: MULTIVITAMINS,THERAPEUTIC TABLET PO SCH (08:21)
[2021-03-25] MEDS: ASPIRIN 81 MG TAB.CHEW PO SCH (08:21)
[2021-03-25] MEDS: AMLODIPINE 10 MG TABLET PO SCH (08:21)
[2021-03-25] MEDS: THIAMINE HCL 100 MG TABLET PO SCH (08:21)
[2021-03-25] MEDS: TAMSULOSIN HCL 0.4 MG CAP.SR.24H PO SCH (08:21)
[2021-03-25] MEDS: METOPROLOL TARTRATE 50 MG TABLET PO SCH (08:22)
[2021-03-25] MEDS: hydrALAZINE HCL 25 MG TABLET PO SCH ×3 (08:22→17:05)
[2021-03-25] MEDS: HEPARIN SODIUM,PORCINE 5,000 UNITS/ML VIAL SQ SCH (08:29)
[2021-03-25 09:07] LABS: A/G RATIO 0.9 (0.7-1.7); ALPHA-1-GLOBULIN 0.2 g/dL (0.0-0.4); BETA GLOBULIN 1.2 g/dL (0.7-1.3); GAMMA GLOBULIN 0.9 g/dL (0.4-1.8); GLOBULIN, TOTAL 3.4 g/dL (2.2-3.9); M-SPIKE Not Observed g/dL (Not Observed)
[2021-03-25 11:15] VITALS: BP 134/81
[2021-03-25] MEDS ORDERED: TRAZ-257 PO (15:37)
[2021-03-25] MEDS ORDERED: LORA-259 PO (15:37)
[2021-03-25] MEDS ORDERED: PANT40TA2 PO (15:37)
[2021-03-25] MEDS ORDERED: HEPA50007 SQ (15:37)
[2021-03-25] MEDS ORDERED: METO50TA16 PO (15:37)
[2021-03-25] MEDS ORDERED: MULT-24 PO (15:37)
[2021-03-25] MEDS ORDERED: THIA100T13 PO (15:37)
[2021-03-25 16:03] VITALS: BP 119/77
[2021-03-25 17:05] VITALS: BP 119/77
--- NOTE | 2021-03-25 17:50 | NUR ---
REPORT GIVEN TO JONNATHAN FROM [facility]
--- NOTE | 2021-03-25 18:07 | NUR ---
Patient discharged to [facility] with [facility], patient is alert, oriented x4, no sob, resp even nonlabored, skin warm and dry to touch, patient is very agitated, does not want to go, watch case polisher called and spoke to patient earlier, patient agreed to go to [facility], however patient is agitated now when transportation is here and getting him ready to go. Addendum: 03/25/21 at 182 by AMBREEN ALVAREZ RN, RN patient is very verbally abusive, combative, being races, using inappropriate language to nurses, stating that no one talk to me regarding discharge, however MODESTO Yepez was here in the morning with this automobile and property underwriter, when ACCORDION MAKER expalined to patient that as soon as we get the placement we are going to discharge you, watch case polisher spoke to patient as well, patient verbalized understanding of it and agreed to plan with watch case polisher earlier and with ACCORDION MAKER as well. Addendum: 03/25/21 at 1822 by AMBREEN ALVAREZ RN, RN household appliance assembler on duty and security made aware Addendum: 03/25/21 at 1840 by AMBREEN ALVAREZ RN, RN correction: patient was being discharged to [facility] with [place] car [place] services, patient refused to have pictures taken prior to discharge. Addendum: 03/25/21 at 1848 by AMBREEN ALVAREZ RN, RN [place] transportation left because patient was very combative, aggressive, and verbally abusive toward staff, and not willing to go voluntary.
--- NOTE | 2021-03-25 18:34 | NUR ---
patient left with supervisor coin machine and with security to wait in the lobby for [place] car transportation, This tag writer spoke to [place] car transportation maintenance supervisor, suggested to send another access to patient, for transport to the [place], patient will be waiting in the lobby. belongings and medications accunted and signed, sent with patient, ID removed, IV Removed as well.
--- NOTE | 2021-03-25 18:38 | NUR ---
correction: patient was being discharged to [place] with [facility] melo services, patient refused to have pictures taken prior to discharge.
--- NOTE | 2021-03-25 18:43 | NUR ---
AT 1834 patient left with supervisor fabrication and assembly and with security to wait in the lobby for [place] transportation, This underwriter spoke to [place] car transportation economics teacher, suggested to send another access to patient, for transport to the [place], patient will be waiting in the lobby. belongings and medications accunted and signed, sent with patient, ID removed, IV Removed as well.
[2021-03-27 16:17] LABS: *PEU PROTEIN, TOTAL, UR 49.3
== END 2021-03-25 18:34 | DRG 469 ==
LOC: ER 19:56 → TELE3 03-19 00:10 → MEDSURG3 03-21 12:12
PROVIDERS: ADMIT Nurse Practitioner Acute Care; ATTEND Registered Nurse
DX: N17.0 Acute kidney failure with tubular necrosis (principal); G92 Toxic encephalopathy; I21.A1 Myocardial infarction type 2; E44.0 Moderate protein-calorie malnutrition; B18.2 Chronic viral hepatitis C; E78.5 Hyperlipidemia, unspecified; G89.29 Other chronic pain; N20.0 Calculus of kidney; K70.10 Alcoholic hepatitis without ascites; N18.9 Chronic kidney disease, unspecified; I12.9 Hypertensive chronic kidney disease with stage 1 through stage 4 chronic kidney disease, or unspecified chronic kidney disease; Z59.0 Homelessness; K76.0 Fatty (change of) liver, not elsewhere classified; R74.01 Elevation of levels of liver transaminase levels; E88.09 Other disorders of plasma-protein metabolism, not elsewhere classified; Z68.31 Body mass index [BMI] 31.0-31.9, adult; F29 Unspecified psychosis not due to a substance or known physiological condition; F10.10 Alcohol abuse, uncomplicated; Y90.1 Blood alcohol level of 20-39 mg/100 ml; Z20.822 Contact with and (suspected) exposure to COVID-19; R53.1 Weakness; Z87.891 Personal history of nicotine dependence; M48.00 Spinal stenosis, site unspecified; K21.9 Gastro-esophageal reflux disease without esophagitis
CPT/HCPCS: 36415; 70030-TC; 71045; 76770; 83735; 84100; 84155; 84156; 84165; 84166; 84443; 85025; 85730; 86225; 86592; 86706; 86708; 86803; 87806; 93005; 93307; 97161; A4663; G0378; G0480; J1170; J1644; J1650; J3490; J7030; J7120

== ENCOUNTER 2021-03-26 13:30 | Emergency (ER) | payer OTHER ==
[~2021-03-26] VITALS: Ht 172.7 cm; Wt 77.6 kg
[~2021-03-26 13:30] MED LIST changes: +ASPI81TA31 PO; -BENA20TA9 PO; -DOCU100C36 PO; +FAMO20TA8 PO; -GABA-534 PO; +HEPA50007 SQ; +HYDR-894 PO; +IBUP-1955 PO; +LORA-259 PO; +MULT-24 PO; +PANT40TA2 PO; -PRED20TA PO; +TAMS-3 PO; +THIA100T13 PO; +TRAZ-257 PO
[2021-03-26] MEDS ORDERED: OXYCODONE/APAP 5-325 MG TABLET PO ONE ×3 (13:45→18:00)
[2021-03-26 14:03] LABS: CREATININE 2.8 mg/dL (0.6-1.3); HEMATOCRIT 42.3 % (36.7-47.1); MEAN CORPUSCULAR HEMOGLOBIN 32.4 uug (23.8-33.4); MEAN CORPUSCULAR VOLUME 94.4 fL (73.0-96.2); PLATELET COUNT (AUTO) 315 K/uL (152-348); POTASSIUM 3.8 mmol/L (3.5-5.1)
[2021-03-26 14:09] LABS: BILIRUBIN,DIRECT 0.1 mg/dL (0.0-0.2); BILIRUBIN,TOTAL 0.3 mg/dL (0.2-1.0); TOTAL PROTEIN, SERUM 7.5 g/dL (6.4-8.2)
--- NOTE | 2021-03-26 14:13 | NUR ---
Patient initially refused the pain pill. "I don't want [place] but I will take Percocet."per patient. Percocet pill was given to patient.
[2021-03-26] MEDS ORDERED: OXYCODONE/APAP 5-325 MG TABLET ONE ×3 (14:18→18:03)
--- NOTE | 2021-03-26 15:20 | NUR ---
Patient wants more pain medicine. "I want IV pain medicine." per patient's verbalization. MD notified.
--- NOTE | 2021-03-26 17:25 | NUR ---
Patient was seen walking with steady gait to the bathroom from ER bed 2B. Patient is for [facility] back to his [facility] but [facility] this patient back to their facility. Dr Nguyen notified. Our nursing administrative nursing supervisor Noah was notified. Message was left to social work program coordinator Melisa, pending callback.
--- NOTE | 2021-03-26 18:33 | NUR ---
Patient refused his ambulance ride to [facility]. Nurse Kimberly of [facility] was notified. Dr Nguyen said that this patient has been cleared for discharge to go back to his assisted-jail. Patient refused to sign the discharge papers but he signed the Homeless Patient Waiver Form. Patient was given written and verbal discharge instructions with copies of all his tests' results. Patient verbalized understanding and compliance of instructions. Patient was ambulatory with steady gait. Patient refused offer of fdc placement. Patient was given list of available shelters in surrounding area.
== END 2021-03-26 18:33 | disposition home or self-care (01) ==
LOC: ER 13:30
DX: S09.90XA Unspecified injury of head, initial encounter (principal); Y04.0XXA Assault by unarmed brawl or fight, initial encounter; Y92.122 Bedroom in nursing home as the place of occurrence of the external cause; M79.10 Myalgia, unspecified site; Z90.49 Acquired absence of other specified parts of digestive tract; M50.322 Other cervical disc degeneration at C5-C6 level; M48.02 Spinal stenosis, cervical region; K21.9 Gastro-esophageal reflux disease without esophagitis; E78.5 Hyperlipidemia, unspecified; I25.2 Old myocardial infarction; I12.9 Hypertensive chronic kidney disease with stage 1 through stage 4 chronic kidney disease, or unspecified chronic kidney disease; N18.9 Chronic kidney disease, unspecified; B18.2 Chronic viral hepatitis C; Z59.0 Homelessness; Z98.1 Arthrodesis status
CPT/HCPCS: 36415; 70030-TC; 70450; 71250; 72125; 85025; 85730; 93005

== ENCOUNTER 2021-03-28 03:21 | Emergency (ER) | payer OTHER ==
[~2021-03-28] VITALS: Ht 172.7 cm; Wt 80.7 kg
--- NOTE | 2021-03-28 03:35 | NUR ---
PT AMBULATED TO ER WITH STEADY C/O NECK AND RIB PAIN AFTER STATED HE HAD A TRIP AND FALL. DR. AMOS AT BEDSIDE, MSE IN PROGRESS.
[2021-03-28] MEDS ORDERED: IBUPROFEN 800 MG TABLET PO ONE (03:45)
--- NOTE | 2021-03-28 03:45 | NUR ---
LAB AND XRAY AT BEDSIDE.
[2021-03-28] MEDS ORDERED: IBUPROFEN 800 MG TABLET ONE (03:46)
[2021-03-28 03:55] LABS: HEMATOCRIT 41.1 % (36.7-47.1); MEAN CORPUSCULAR HEMOGLOBIN 32.6 uug (23.8-33.4); MEAN CORPUSCULAR VOLUME 93.8 fL (73.0-96.2); PLATELET COUNT (AUTO) 365 K/uL (152-348)
[2021-03-28 04:46] LABS: CREATININE 3.5 mg/dL (0.6-1.3); POTASSIUM 4.2 mmol/L (3.5-5.1)
[2021-03-28 04:49] LABS: LIPASE 153 U/L (73-393); MAGNESIUM 2.4 mg/dL (1.8-2.4)
[2021-03-28 04:58] LABS: BILIRUBIN,DIRECT 0.1 mg/dL (0.0-0.2); BILIRUBIN,TOTAL 0.2 mg/dL (0.2-1.0); TOTAL PROTEIN, SERUM 8.2 g/dL (6.4-8.2)
[2021-03-28 05:10] LABS: ETHANOL < 3 MG/DL (0-0)
--- NOTE | 2021-03-28 07:26 | NUR ---
Patient was given written and verbal discharge instructions. Patient refused to sign the discharge papers and the Homeless Patient Waiver Form as witnessed by EUSEBIO Lu. Patient verbalized understanding and compliance of instructions but refused to leave the hospital unless the ER doctor gives him a Dilaudid prescription. Patient refused offer of halfway placement. Patient was also given a list of available shelters in surrounding area. Security assistance was requested to escort him out. Patient was ambulatory, +steady gait with chronic limp.
== END 2021-03-28 07:44 | disposition home or self-care (01) ==
LOC: ER 03:23
DX: M79.10 Myalgia, unspecified site (principal); I12.9 Hypertensive chronic kidney disease with stage 1 through stage 4 chronic kidney disease, or unspecified chronic kidney disease; N18.9 Chronic kidney disease, unspecified; F10.10 Alcohol abuse, uncomplicated; Y90.0 Blood alcohol level of less than 20 mg/100 ml; I45.10 Unspecified right bundle-branch block; Z90.49 Acquired absence of other specified parts of digestive tract; I25.2 Old myocardial infarction; B18.2 Chronic viral hepatitis C; Z59.0 Homelessness; G89.29 Other chronic pain; M54.9 Dorsalgia, unspecified; F17.290 Nicotine dependence, other tobacco product, uncomplicated
CPT/HCPCS: 36415; 70030-TC; 71045; 83690; 83735; 84100; 85025; 93005; A4663; G0480

== ENCOUNTER 2021-04-01 19:55 | Emergency (ER) | payer OTHER ==
[~2021-04-01] VITALS: Ht 172.7 cm; Wt 80.7 kg
[2021-04-01 21:03] LABS: HEMATOCRIT 37.1 % (36.7-47.1); MEAN CORPUSCULAR HEMOGLOBIN 32.4 uug (23.8-33.4); MEAN CORPUSCULAR VOLUME 93.2 fL (73.0-96.2); PLATELET COUNT (AUTO) 420 K/uL (152-348)
[2021-04-01 21:22] LABS: BILIRUBIN,DIRECT 0.1 mg/dL (0.0-0.2); BILIRUBIN,TOTAL 0.3 mg/dL (0.2-1.0); CREATININE 3.2 mg/dL (0.6-1.3); POTASSIUM 3.6 mmol/L (3.5-5.1); TOTAL PROTEIN, SERUM 7.3 g/dL (6.4-8.2)
[2021-04-01] MEDS ORDERED: ACETAMINOPHEN ES 500 MG TABLET PO ONE (22:00)
[2021-04-01] MEDS ORDERED: FURO20TA4 PO (22:02)
[2021-04-01] MEDS ORDERED: ACETAMINOPHEN ES 500 MG TABLET ONE (22:12)
--- NOTE | 2021-04-01 22:25 | NUR ---
Patient given written and verbal discharge instructions. Patient verbalizes understanding of instructions. Patient is ambulatory with steady gait. Refuses offer of detention placement. Patient given list of available shelters in surrounding area.
[2021-04-01 23:01] VITALS: BP 158/85
== END 2021-04-01 22:45 | disposition home or self-care (01) ==
LOC: ER 19:58
DX: M54.2 Cervicalgia (principal); Z76.5 Malingerer [conscious simulation]; R79.89 Other specified abnormal findings of blood chemistry; I45.10 Unspecified right bundle-branch block; I12.9 Hypertensive chronic kidney disease with stage 1 through stage 4 chronic kidney disease, or unspecified chronic kidney disease; N18.9 Chronic kidney disease, unspecified; I25.2 Old myocardial infarction; B18.2 Chronic viral hepatitis C; Z90.49 Acquired absence of other specified parts of digestive tract; Z79.82 Long term (current) use of aspirin; Z79.899 Other long term (current) drug therapy; F17.290 Nicotine dependence, other tobacco product, uncomplicated
CPT/HCPCS: 36415; 70030-TC; 85025; 93005; A4663; A9150

== ENCOUNTER 2021-05-15 19:20 | Emergency (ER) | payer OTHER ==
[~2021-05-15] VITALS: Ht 172.7 cm; Wt 77.1 kg
[~2021-05-15 19:20] MED LIST changes: +FURO20TA4 PO
[2021-05-15] MEDS ORDERED: ACETAMINOPHEN ES 500 MG TABLET PO ONE (20:30)
[2021-05-15] MEDS ORDERED: ACET-73 PO (20:31)
[2021-05-15] MEDS ORDERED: ACETAMINOPHEN ES 500 MG TABLET ONE (20:46)
--- NOTE | 2021-05-15 21:00 | NUR ---
Patient given written and verbal discharge instructions. Patient verbalizes understanding of instructions. Patient is ambulatory with steady gait. Refuses offer of penitentiary placement. Patient given list of available shelters in surrounding area.
== END 2021-05-15 21:00 | disposition home or self-care (01) ==
LOC: ER 19:20
DX: S16.1XXA Strain of muscle, fascia and tendon at neck level, initial encounter (principal); X58.XXXA Exposure to other specified factors, initial encounter; Y92.89 Other specified places as the place of occurrence of the external cause; G89.29 Other chronic pain; Z59.01 Sheltered homelessness; Z90.49 Acquired absence of other specified parts of digestive tract; B18.2 Chronic viral hepatitis C; I25.2 Old myocardial infarction; M48.02 Spinal stenosis, cervical region; I13.0 Hypertensive heart and chronic kidney disease with heart failure and stage 1 through stage 4 chronic kidney disease, or unspecified chronic kidney disease; N18.9 Chronic kidney disease, unspecified; I50.9 Heart failure, unspecified
CPT/HCPCS: A4663; A9150